=== PATIENT | male | born 2000 | race Hispanic/Latino ===

== ENCOUNTER 2021-09-11 15:07 | Emergency (ER) | payer OTHER, SELFPAY ==
[2021-09-11] MEDS ORDERED: Acetaminophen 500 MG TAB ONE (16:33)
== END 2021-09-11 16:53 | disposition home or self-care (01) ==
LOC: ERS 15:07
DX: S09.90XA Unspecified injury of head, initial encounter (principal); S16.1XXA Strain of muscle, fascia and tendon at neck level, initial encounter; V89.2XXA Person injured in unspecified motor-vehicle accident, traffic, initial encounter
CPT/HCPCS: 70450; 71045; 72125

== ENCOUNTER 2024-01-16 20:44 | Emergency (ER) | payer SELFPAY ==
[~2024-01-16 20:44] MED LIST: Iopamidol-370 76% 500 ML MDV (1 ML CHARGE) ONE
[2024-01-16] MEDS ORDERED: Ondansetron PF 4 MG/2 ML Vial ONE (21:34)
[2024-01-16] MEDS ORDERED: Ketorolac Tromethamine 30 MG (1 mL) VIAL ONE (21:34)
[2024-01-16 22:12] LABS: ALT (SGPT) 12 U/L (8-55); AST (SGOT) 15 U/L (5-34); Albumin 3.8 g/dL (3.5-5.0); Alkaline Phosphatase 61 U/L (40-110); Anion Gap 15 mmol/L (10-20); BUN (Urea Nitrogen) 8 mg/dL (8.9-20.6); Bilirubin, Total 0.7 mg/dL (0.2-1.2); CK (CPK) 61 U/L (30-200); Calc. Creatinine Clearance 0 mL/min (70-130); Calcium 9.3 mg/dL (7.8-10.44); Carbon Dioxide 23 mmol/L (22-29); Chloride 101 mmol/L (98-107); Estimated GFR 111; Globulin 4.2 g/dL (2.4-3.5); Glucose 93 mg/dL (70-105); Lipase 12 U/L (8-78); Potassium 3.8 mmol/L (3.5-5.1); Sodium 135 mmol/L (136-145)
[2024-01-16 22:36] LABS: Influenza A by NAA Not Detected (NotDetected); Influenza B by NAA Not Detected (NotDetected); SARS-CoV-2 NAA Rapid Test Not Detected (NotDetected)
[2024-01-16 22:47] LABS: Hematocrit 41.8 % (42.0-52.0); Hemoglobin 14.8 g/dL (14.0-18.0); Mean Corpuscular HGB CONC 35.4 g/dL (32.0-36.0); Mean Corpuscular Volume 90.5 fL (78.0-98.0); Mean Platelet Volume 11.1 fL (7.4-10.4); Platelet Count 189 10x3/uL (130-400); RBC Distribution Width 12.2 % (11.5-14.5); Red Blood Cell (RBC) Count 4.62 mill/uL (4.70-6.10)
[2024-01-16 23:23] LABS: Band 41 % (5-11); Macrocytosis SLIGHT = 6-15 cells HPF (0-5); Polychromasia SLIGHT = 2-3 cells HPF (0-2)
[2024-01-16 23:24] LABS: Large Platelets 1.1 % (0-5); Platelet Adequacy Comment Platelets Normal; Smudge Cells 28.4 %
[2024-01-16 23:26] LABS: Reflex for Review?? YES
[2024-01-16 23:29] LABS: Lymphocytes 19 % (21-51); Monocytes 8 % (0-10); Neutrophil 32 % (42-75)
== END 2024-01-16 23:14 | disposition home or self-care (01) ==
LOC: ERS 20:44
DX: A09 Infectious gastroenteritis and colitis, unspecified (principal); R11.10 Vomiting, unspecified
CPT/HCPCS: 74177; 80053; 82550; 83690; 85025; 85060; 96374; 96375; J1885; J2405; Q9967